=== PATIENT | female | born 1975 | race African-American/Black ===

== ENCOUNTER 2018-08-07 15:21 | Emergency (ER) | payer OTHER ==
[2018-08-07 16:12] LABS: HEMATOCRIT 34.2 % (37.0-47.0); HEMOGLOBIN 11.3 g/dl (12.0-16.0); IMMATURE GRANULOCYTES 0.3 % (0.0-5.0); MEAN CELL VOLUME 98.6 fL CALC (80.0-100.0); MEAN CORPUSCULAR HGB 32.6 pG CALC (26.0-32.0); NEUT# 4.44 thou/uL (2.00-7.15); RED BLOOD COUNT 3.47 mill/uL (4.20-5.60); RED CELL DISTRI WIDTH 12.9 % (11.5-15.5)
[2018-08-07 16:24] LABS: ALBUMIN 4.2 g/dL (3.2-5.0); ALKALINE PHOSPHATASE 79 u/l (38-126); ANION GAP 13 (6-22 (CALC)); BILIRUBIN, TOTAL 0.6 mg/dL (0.0-1.4); BUN 17 mg/dL (7-17); BUN/CREATININE RATIO 32 (12-20 (CALC)); CARBON DIOXIDE 22 mmol/l (22-30); CHLORIDE 105 mmol/l (95-108); CREATININE 0.5 mg/dL (0.5-1.0); GFR > 60 ML/MIN (>=60 (CALC)); GFR FOR AFR.AMER. > 60 ML/MIN (>=60 (CALC)); POTASSIUM 3.9 mmol/l (3.5-5.1); SGOT/AST 49 u/l (14-36); SODIUM 136 mmol/l (137-146); TOTAL PROTEIN 7.3 g/dL (6.3-8.2)
[2018-08-07] MEDS ORDERED: TORADOL PO (17:09)
[2018-08-07] MEDS ORDERED: ERYTHROMYCIN O3.5 GM OU (17:19)
[2018-08-07] MEDS ORDERED: ACULAR LS0.4 % OD (17:19)
[2018-08-07 17:20] VITALS: BP 141/78
== END 2018-08-07 17:26 | disposition home or self-care (01) | DRG 125 ==
LOC: ED 15:21
PROVIDERS: Emergency Medicine
DX: S05.11XA Contusion of eyeball and orbital tissues, right eye, initial encounter (principal); S80.02XA Contusion of left knee, initial encounter; H57.11 Ocular pain, right eye; V43.53XA Car driver injured in collision with pick-up truck in traffic accident, initial encounter; Y92.411 Interstate highway as the place of occurrence of the external cause